=== PATIENT | female | born 1995 | race African-American/Black ===

== ENCOUNTER 2020-07-11 09:59 | Observation (INO) | payer MEDICAID ==
[~2020-07-11] VITALS: Ht 177.8 cm; Wt 138.8 kg
[2020-07-11] MEDS ORDERED: PREN1TAB78 MT (10:25)
== END 2020-07-11 10:45 | disposition home or self-care, planned readmission (81) ==
LOC: 8 EST LDRP 09:59
PROVIDERS: ADMIT Obstetrics & Gynecology; ATTEND Obstetrics & Gynecology
DX: O62.9 Abnormality of forces of labor, unspecified (principal); Z3A.38 38 weeks gestation of pregnancy
CPT/HCPCS: 59025; 99281; G0378